=== PATIENT | male | born 1985 | race Caucasian/White ===

== ENCOUNTER 2018-04-22 01:40 | Emergency (ER) | payer OTHER ==
[2018-04-22 01:47] VITALS: BP 135/74
[2018-04-22] MEDS ORDERED: IBUPROFEN 600 MG TAB PO ONE (01:53)
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
[2018-04-22] MEDS ORDERED: ACETAMINOPHEN 500 MG TAB ONE (02:33)
[2018-04-22] MEDS ORDERED: ACETAMINOPHEN 500 MG TAB PO ONE (02:34)
== END 2018-04-22 02:40 | disposition home or self-care (01) ==
DX: S93.601A Unspecified sprain of right foot, initial encounter (principal); V18.4XXA Pedal cycle driver injured in noncollision transport accident in traffic accident, initial encounter; Y92.410 Unspecified street and highway as the place of occurrence of the external cause; Y99.8 Other external cause status; Y93.55 Activity, bike riding